=== PATIENT | female | born 2000 | race Caucasian/White ===

== ENCOUNTER 2021-02-11 09:20 | Emergency (ER) | payer OTHER, SELFPAY ==
[2021-02-11 09:33] VITALS: BP 146/97; PULSE 104; RESP 18; TEMP 37.1; O2SAT 100
--- NOTE | 2021-02-11 09:40 | ED.URI ---
HPI - URI/Sore Throat General Chief Complaint: Upper Respiratory Infection Stated Complaint: Cough, head ache. Time Seen by Provider: 02/11/21 09:40 Source: patient Mode of arrival: ambulatory Limitations: no limitations History of Present Illness HPI Narrative: Glenny Sanders is a 20 yo female with no PMH comes to [facility] leaving work with an episode of vomiting and diarrhea today. She states she has been coughing quite a bit and has been coughing up mucus ; she has no fever however her pulse rate is somewhat elevated as is her blood pressure. She had Covid in November has had only 1 dose of vaccine. Related Data Home Medications Medication Instructions Recorded Confirmed etonogestrel [Nexplanon] 1 implant SUBDERMAL ONCE 02/11/21 02/11/21 Allergies Allergy/AdvReac Type Severity Reaction Status Date / Time No Known Allergies Allergy Verified 02/11/21 09:39 Review of Systems Review of Systems: CONSTITUTIONAL: Denies fever, chills, sweats. EYES: Denies visual changes, redness, discharge. ENT: Denies rhinorrhea, has congestion, sore throat, otalgia. CARDIOVASCULAR: Denies chest pain, palpitations, edema. RESPIRATORY: Denies dyspnea, wheezing, has cough GASTROINTESTINAL: Denies abdominal pain, nausea, vomiting, diarrhea. GENITOURINARY: Denies dysuria, hematuria, abnormal discharge SKIN: Denies rash or itching. NEUROLOGIC: Denies numbness, or focal weakness. PSYCHIATRIC: Denies anxiety or depression. PMFSH Past Medical History Medical History No acute medical problems Family History Family History Other No acute medical problems Social History Social History (Updated 02/11/21 @ 09:57 by Lesa Au CNP) Smoking status: Current every day smoker Tobacco type: e-cigarettes/vaping Alcohol intake: current Comments At time of signature, I agree with nursing past medical, surgical, social and family history. There is no relevant family history pertinent to the presenting complaint. BP elevated at visit - recommend follow up with a pcp Exam Narrative: GENERAL: This is a well-nourished, well-developed patient, in mild distress. HEAD: normocephalic, atraumatic. EYES: Sclera clear/white. Vision is grossly intact. EARS: External ears normal, auditory canals erythema and without drainage, TMs normal without perforation. Hearing grossly intact. NOSE: External nose normal without nasal discharge, nares without redness, mild rhinorrhea. THROAT: Mucous membranes moist, posterior pharynx erythema NECK: Neck supple, non-tender CARDIOVASCULAR: Tachycardic rate and rhythm without murmurs, gallops, or rubs. RESPIRATORY: Clear to auscultation. Breath sounds equal bilaterally. No wheezes, rales, or rhonchi. GASTROINTESTINAL: Abdomen soft, non-tender, SKIN: warm, intact with no suspicious lesions or rash, good texture and turgor. NEURO: awake, alert, and oriented to person, place and time. There were no obvious focal neurologic abnormalities. Steady gait EXTREMITIES: Normal range of motion. BACK: Nontender without deformity Course Course Emergency Course: Patient comes with cough not feeling well myalgias Flu negative Treated with Tessalon, Zyrtec, rest and hygiene hydration Vital Signs Vital signs: Vital Signs Temperature 98.7 F 02/11/21 09:33 Pulse Rate 104 H 02/11/21 09:33 Respiratory Rate 18 02/11/21 09:33 Blood Pressure 146/97 H 02/11/21 09:33 Pulse Oximetry 100 02/11/21 09:33 Temperature 98.7 F 02/11/21 09:33 Pulse Rate 104 H 02/11/21 09:33 Respiratory Rate 18 02/11/21 09:33 Blood Pressure 146/97 H 02/11/21 09:33 Pulse Oximetry 100 02/11/21 09:33 MDM - URI/Sore Throat Differential Diagnosis Differential diagnosis: Likely upper respiratory infection, sinusitis, viral infection, bronchitis, pharyngitis and other Lab Data Labs: Influenza A S
== END 2021-02-11 10:08 | disposition home or self-care (01) ==
PROVIDERS: Emergency Provider Nurse Practitioner
DX: J06.9 Acute upper respiratory infection, unspecified (principal); F17.200 Nicotine dependence, unspecified, uncomplicated
CPT/HCPCS: 87804; 99213; G0463

== ENCOUNTER 2022-01-16 13:29 | Emergency (ER) | payer OTHER, SELFPAY ==
[2022-01-16 13:37] VITALS: BP 142/92; PULSE 8; RESP 16; TEMP 37.3; O2SAT 99
[2022-01-16 13:38] VITALS: BP 142/92; PULSE 8; RESP 16; TEMP 37.3; O2SAT 99
--- NOTE | 2022-01-16 13:50 | ED.EAR ---
HPI - Ear Problem General Chief complaint: Ear Stated complaint: ear pain Time Seen by Provider: 01/16/22 13:51 Source: patient Mode of arrival: ambulatory Limitations: no limitations History of Present Illness HPI Narrative: 21 y/o female presented for c/o left ear pain since last night. Tried Debrox today and attempted to flush the ear afterwards, and thinks that made the pain worse. States she took a nap and upon waking about an hour ago she has had throbbing pain 01/17 and reports a tender 'knot' behind the ear. Denies tinnitus, dizziness, nausea, vomiting, fevers or chills. States she took ibuprofen for symptoms. MD Complaint: ear pain Related Data Home Medications Medication Instructions Recorded Confirmed etonogestrel 68 mg subdermal subdermal 03/01/19 implant (Nexplanon) Allergies Allergy/AdvReac Type Severity Reaction Status Date / Time No Known Allergies Allergy Verified 01/16/22 13:37 Review of Systems Review of Systems: CONSTITUTIONAL: Denies malaise, chills, or fever. EYES: Denies visual changes, redness, or discharge. ENT: Denies rhinorrhea, congestion, sinus pain, and sore throat. Reports ear pain CARDIOVASCULAR: Denies chest pain, palpitations, or edema. RESPIRATORY: Denies cough or dyspnea. GASTROINTESTINAL: Denies abdominal pain, nausea, vomiting, diarrhea SKIN: Denies rash or itching. MUSCULOSKELETAL: Denies myalgia. NEUROLOGIC: Denies headache. All systems reviewed & are unremarkable except as noted in HPI and below PMFSH Social History Social History Smoking status: Never smoker Alcohol intake: never Substance use: never Comments At time of signature, agree with nursing past medical, surgical, social and family history. There is no relevant family history pertinent to the presenting complaint Exam Narrative: GENERAL: Appears in pain, no acute distress. EYES: PERRLA, conjunctivae clear ENT: Nares clear. Mucous membranes moist. Right TM pearly sharp with dull light reflex; Left TM erythematous and bulging with erythematous canal, tender; no tragal tenderness. Oropharynx not erythematous without lesions. Tonsils not enlarged and without exudate, no drooling, no hoarseness, no trismus, uvula midline. NECK: Supple. Pre and post auricular lymphadenopathy CHEST: Clear to auscultation, breath sounds equal. No wheezing, rhonchi, rales, or stridor. HEART: Regular rate and rhythm. No murmur heard. SKIN: Warm, dry, no rash. NEURO: Alert and oriented x3. Course Course Emergency Course: Patient is aware of diagnosis, understands and agrees to treatment plan. Anticipatory guidance given. Patient agrees to follow-up as directed and is aware of reasons to seek care at the emergency department. Portions of this record may have been created with voice recognition software Level [facility] Care: [facility] Vital Signs Vital signs: Vital Signs Temperature 99.1 F 01/16/22 13:37 Pulse Rate 8 L 01/16/22 13:37 Respiratory Rate 16 01/16/22 13:37 Blood Pressure 142/92 H 01/16/22 13:37 Pulse Oximetry 99 01/16/22 13:37 Oxygen Delivery Room Air 01/16/22 13:37 Temperature 99.1 F 01/16/22 13:38 Pulse Rate 8 L 01/16/22 13:38 Respiratory Rate 16 01/16/22 13:38 Blood Pressure 142/92 H 01/16/22 13:38 Pulse Oximetry 99 01/16/22 13:38 Oxygen Delivery Room Air 01/16/22 13:38 Reviewed Medical Decision Making MDM Narrative Medical decision making narrative: Advised supportive measures and signs/symptoms to go to the ER. Patient is appropriate for outpatient treatment and follow-up. Differential Diagnosis Differential Diagnosis: Coronavirus, strep pharyngitis, allergic rhinitis, upper respiratory tract infection, sinusitis, rhinosinusitis, nasopharyngitis, viral pharyngitis, otitis media, otitis externa, eustachian tube dysfunction, foreign body, cerumen impaction. Vital Signs Vital Signs: Vital Sign
== END 2022-01-16 14:06 | disposition home or self-care (01) ==
PROVIDERS: Emergency Provider Nurse Practitioner Family
DX: H66.92 Otitis media, unspecified, left ear (principal)
CPT/HCPCS: 99213; G0463

== ENCOUNTER 2022-01-17 07:31 | Emergency (ER) | payer OTHER, SELFPAY ==
[2022-01-17 07:35] VITALS: BP 139/96; PULSE 94; RESP 17; TEMP 36.5; O2SAT 99
--- NOTE | 2022-01-17 07:59 | ED.EAR ---
HPI - Ear Problem General Chief complaint: Ear Stated complaint: L EAR INFECTION Time Seen by Provider: 01/17/22 07:32 Source: RN notes reviewed History of Present Illness HPI Narrative: Patient presents emergency room from home for left ear pain. Patient states left ear pain began 2 days ago. States that the ear is painful to touch as well as aching pain inside the ear and she feels swollen around the area she denies any fevers or chills rhinorrhea sore throat or any other symptoms states she went to the urgent care yesterday and was prescribed Augmentin which she is taken 2 doses of as well as ibuprofen she states she took ibuprofen this morning with minimal relief of the pain Related Data Home Medications Medication Instructions Recorded Confirmed etonogestrel 68 mg subdermal subdermal 03/01/19 implant (Nexplanon) Allergies Allergy/AdvReac Type Severity Reaction Status Date / Time No Known Allergies Allergy Verified 01/17/22 07:38 Review of Systems Review of Systems: Gen.: Denies fevers or chills HEENT: See HPI Respiratory: Denies cough or shortness of breath Musculoskeletal: Denies joint pain Neuro: Denies numbness, tingling, weakness Skin: Denies rash Endo: Denies DM PMFSH Past Medical History Medical History (Updated 01/17/22 @ 08:01 by Isaías Colunga DO) Patient denies significant medical history Social History Social History Smoking status: Never smoker Alcohol intake: never Substance use: never Exam Narrative: APPEARANCE: No acute distress, nontoxic, resting in bed HEENT: Normocephalic, atraumatic, right TM is normal appearance, the left ear is tender to palpation with pulling on the ear the ear canal is swollen and can see approximately 25% of the TM that is normal in appearance nares patent, oral mucosa moist erythema exudate posterior pharynx Neck: Supple no cervical lymphadenopathy RESPIRATORY: No respiratory distress MUSCULOSKELETAl: Moves all extremities. NEURO: Awake and alert. Following commands, speech normal, no focal deficits SKIN:: Warm, dry. Normal Color PSYCHIATRIC: Normal affect/mood Course Course Emergency Course: Discussed with patient results of workup and diagnosis. Discussed need for follow-up with primary care, proper use of medication, and reasons to return to the emergency department. Patient understands and agrees to current treatment plan discussed with patient need to continue her Augmentin Vital Signs Vital signs: Vital Signs Temperature 97.7 F 01/17/22 07:35 Pulse Rate 94 01/17/22 07:35 Respiratory Rate 17 01/17/22 07:35 Blood Pressure 139/96 H 01/17/22 07:35 Pulse Oximetry 99 01/17/22 07:35 Oxygen Delivery Room Air 01/17/22 07:35 Temperature 97.7 F 01/17/22 07:35 Pulse Rate 94 01/17/22 07:35 Respiratory Rate 17 01/17/22 07:35 Blood Pressure 139/96 H 01/17/22 07:35 Pulse Oximetry 99 01/17/22 07:35 Oxygen Delivery Room Air 01/17/22 07:35 Medical Decision Making Vital Signs Vital Signs: Vital Signs Temperature 97.7 F 01/17/22 07:35 Pulse Rate 94 01/17/22 07:35 Respiratory Rate 17 01/17/22 07:35 Blood Pressure 139/96 H 01/17/22 07:35 Pulse Oximetry 99 01/17/22 07:35 Oxygen Delivery Room Air 01/17/22 07:35 Temperature 97.7 F 01/17/22 07:35 Pulse Rate 94 01/17/22 07:35 Respiratory Rate 17 01/17/22 07:35 Blood Pressure 139/96 H 01/17/22 07:35 Pulse Oximetry 99 01/17/22 07:35 Oxygen Delivery Room Air 01/17/22 07:35 Discharge Plan Discharge Clinical Impression: Otitis externa Patient Disposition: Home, Self-Care Condition: Stable Instructions: Antibiotic Form, Swimmer's Ear (ED) Additional Instructions: Return for increasing pain fever vomiting or any other symptoms of concern Prescriptions: New ciprofloxacin-dexamethasone [Ciprodex] 0.3-0.1 % drops,suspension 4 drp LE
[2022-01-17] MEDS: HYDROcodone/acetaminophen (*CRX) 5-325 MG TABLET 1 TAB PO (08:01)
[2022-01-17] MEDS: NEOMYCIN/POLYMYXIN/HYDROCORT OT SUSP 10 ML BTL (*BKC) 4 DROP EACH EAR (08:11)
--- NOTE | 2022-01-17 08:15 | PC.NURSE ---
Antibiotics administered in left ear only per EDP Cristine.
[2022-01-17 08:20] VITALS: TEMP 36.5
== END 2022-01-17 08:20 | disposition home or self-care (01) ==
PROVIDERS: Emergency Provider Emergency Medicine
DX: H60.92 Unspecified otitis externa, left ear (principal)
CPT/HCPCS: 99283; A9270

== ENCOUNTER 2022-06-22 08:56 | Observation (INO) | payer OTHER, SELFPAY ==
--- NOTE | ~2022-06-22 | CT_ITS ---
EXAMINATION: CT abdomen pelvis w con DATE: 06/22/2022 11:04 INDICATION: Right upper quadrant abdominal pain and bilateral flank pain TECHNIQUE: Computed tomography (CT) of the abdomen and pelvis was performed with 100 mL Omnipaque-350 intravenous contrast. Automated exposure control and iterative reconstruction technique were employe d. The dose-length product was 1332.33 mGy-cm. COMPARISON: None FINDINGS: Lung bases are clear. Heart size is normal. No pericardial or pleural effusion. Focal hepatic steatos is at the ligamentum teres. Large gallstone in the nondilated gallbladder with no evident wall thicke aura or pericholecystic inflammatory stranding to suggest acute cholecystitis. Curvilinear calcificat ion at the fundus of the gallbladder could represent additional tiny gallstones or mural calcificatio n (porcelain gallbladder). No intra or extrahepatic biliary ductal dilation. Pancreas, spleen, bilate ral adrenal glands and kidneys are normal. Postoperative change of prior appendectomy with suture vanessa e along the tip the cecum and a few surgical clips along the ileocolic mesentery. Bowels are otherwis e unremarkable with no obstruction. 2 cm right ovarian cyst/follicle. Left ovary, anteverted uterus a nd bladder are unremarkable. Small amount of likely physiologic free fluid in the cul-de-sac. No absc ess or free intraperitoneal gas. No pathologically enlarged abdominal or pelvic lymphadenopathy. Righ t supra-acetabular bone island. IMPRESSION: 1. Cholelithiasis along with possible mural calcification (porcelain gallbladder) at the fundus. No b iliary ductal dilation or findings to suggest acute cholecystitis. Reviewed, dictated and finalized at location B. IMPRESSION: 1. Cholelithiasis along with possible mural calcification (porcelain gallbladde r) at the fundus. No biliary ductal dilation or findings to suggest acute juan cystitis.
--- NOTE | ~2022-06-22 | US_ITS ---
EXAMINATION: US abdomen limited DATE: 06/22/2022 11:58 INDICATION: Cholelithiasis. Itchiness. TECHNIQUE: Multiple grayscale and Doppler ultrasound images of the abdomen were obtained. COMPARISON: CT abdomen pelvis 06/22/2022 FINDINGS: Results portions of the head and body of the pancreas are normal. The liver is normal witho ut focal lesion. There is normal flow in main portal vein. The gallbladder is normal in size and cont ains gallstones. No gallbladder wall thickening or sonographic Fortune sign. The common duct is mildly dilated and measures 7 mm. IMPRESSION: 1. Mildly dilated common duct. 2. Cholelithiasis. No evidence of acute cholecystitis. Reviewed, dictated and finalized at location A.
--- NOTE | ~2022-06-22 | MR_ITS ---
EXAMINATION: MR MRCP wo/w con/w 3D wo ind DATE: 06/23/2022 07:05 INDICATION: Choledocholithiasis. Abdominal pain. TECHNIQUE: Magnetic resonance imaging (MRI) of the abdomen was performed without and with 17 mL Multi Gilbert intravenous contrast. Sequences included coronal T2-weighted FS FSE, coronal T2-weighted FSE, a xial T1-weighted LAVA, coronal FS FIESTA, axial dual-echo T1-weighted SPGR, coronal lava-FLEX, sagitt al T2-weighted FSE, axial T2-weighted FSE, and axial DWI. Thick-slab T2-weighted FSE images were obta ined for magnetic resonance cholangiopancreatography (MRCP). Maximum intensity projection 3-D reconst ructions of the volumetric data were created by the technologist. Postcontrast sequences included cor onal LAVA-flex and time course of axial T1-weighted LAVA. COMPARISON: Abdomen ultrasound 06/22/2022, CT abdomen and pelvis 06/22/2022 FINDINGS: ABDOMEN MRI: The liver and spleen are normal. There is a 3.0 cm gallstone in the gallbladder, which i s normal in size. The pancreas, adrenal glands, and kidneys are normal. There are no dilated loops of bowel. There are no pathologically enlarged lymph nodes. There is no free intraperitoneal fluid. ABDOMEN MRCP: The common duct is mildly dilated to 8 mm. No choledocholithiasis. IMPRESSION: 1. Mildly dilated common duct. No choledocholithiasis. 2. Cholelithiasis. No evidence of acute cholecystitis. Reviewed, dictated and finalized at location A.
[2022-06-22 09:18] VITALS: BP 143/70; PULSE 95; RESP 18; TEMP 36.8; O2SAT 100
[2022-06-22 09:49] LABS: Basophils Percent Auto 0.4 % (0.2-1.2); Eosinophils Absolute Auto 0.1 K/mm3 (0-0.3); Eosinophils Percent Auto 1.1 % (0-4.4); Hematocrit 42.4 % (37.0-47.0); Hemoglobin 13.8 g/dL (12.0-15.0); Immature Granulocyte Absolute 0.03 K/mm3 (0.00-0.031); Immature Granulocyte Percent A 0.3 % (0-0.5); Lymphocytes Absolute Auto 1.55 K/mm3 (0.9-3.2); Lymphocytes Percent Auto 16.1 % (18.3-44.2); Mean Corpuscular HGB Conc 32.5 g/dl (32-36); Mean Corpuscular Hemoglobin 30.4 pg (26-34); Mean Corpuscular Volume 93.4 fl (80-100); Mean Platelet Volume 11.2 fl (7.4-10.4); Monocytes Absolute Auto 0.3 K/mm3 (0.1-0.6); Monocytes Percent Auto 2.8 % (2.6-8.5); Neutrophils Absolute Auto 7.6 K/mm3 (1.3-6.7); Neutrophils Percent Auto 79.3 % (45.5-73.1); Platelet Count Result 260 k/mm3 (150-375); Red Blood Count 4.54 M/mm3 (4.2-5.4); White Blood Count 9.6 K/mm3 (4.5-10.0)
[2022-06-22 09:53] LABS: Appearance Urine Cloudy (Clear); Bacteria Urine 3+ /hpf; Bilirubin Urine Negative (Negative); Blood Urine Negative (Negative); Color Urine Yellow (Yellow); Glucose Urine UA 1+ mg/dL (Negative); Ketones Urine Trace mg/dL (Negative); Leukocyte Esterase Ur Trace LEU/UL (Negative); Nitrate Urine Negative (Negative); Non Pathogenic Casts 0-2; Protein Urine Negative (Negative); RBC Urine 0-2 /hpf (0-2); Specific Grav Ur 1.026 (1.001-1.035); Squamous Epithelial Cell Urine Many /hpf (Few); Urobilinogen Urine 0.2 mg/dL (<2.0)
[2022-06-22 09:55] LABS: Add Urine Microscopic? YES
[2022-06-22 09:59] LABS: Alanine Aminotransferase 146 U/L (6-35); Albumin Level 4.1 g/dL (3.5-5.1); Alkaline Phosphatase 106 U/L (38-126); Anion Gap 7 mmol/L (8-16); Aspartate Amino Transferase 47 U/L (14-36); Bilirubin,Total 0.8 mg/dL (0.2-1.3); Blood Urea Nitrogen 15 mg/dL (7-17); Calcium 8.7 mg/dL (8.4-10.2); Carbon Dioxide 25 mmol/L (22-30); Chloride 105 mmol/L (98-107); Estimated CRCL calculation 118 ml/min; Estimated Glomerular Filt Rate > 60; Glucose 202 mg/dL (65-110); Potassium 3.9 mmol/L (3.4-5.0); Sodium 137 mmol/L (137-145)
--- NOTE | 2022-06-22 10:24 | ED.FEMALEGU ---
HPI - Female Genitourinary General Chief complaint: Urogenital-Female <Marnie Whitlock PA-C - Last Filed: 06/22/22 13:27> Stated complaint: Flank Pain, Itching all over, dark urine <Marnie Whitlock PA-C - Last Filed: 06/22/22 13:27> Time Seen by Provider: 06/22/22 10:17 <Marnie Whitlock PA-C - Last Filed: 06/22/22 13:27> History of Present Illness HPI Narrative: Patient is a 21-year-old female who is previously healthy here for evaluation of bilateral flank pain. Patient states the pain is intermittent in nature, coming in waves without warning. The pain originates in her bilateral flanks and wraps around to the front of her abdomen. Is occasionally associated with nausea but no vomiting. She also notes urinary urgency but decreased urinary output. Additionally, patient states that she has an itching sensation all over her body but denies any rash, exposure to allergens, new soaps medications or detergents. She has not attempted any medicine for her symptoms. No fevers, chills, vomiting, diarrhea, constipation. She has a history of appendicitis and is status post appendectomy. <RAYMOND Mahoney Last Filed: 06/22/22 13:27> Related Data Home medications: Home Medications Medication Instructions Recorded Confirmed etonogestrel 68 mg subdermal subdermal 03/01/19 implant (Nexplanon) <RAYMOND Mahoney Last Filed: 06/22/22 13:27> Allergies/Adverse reactions: Allergies Allergy/AdvReac Type Severity Reaction Status Date / Time No Known Allergies Allergy Verified 06/22/22 08:57 <RAYMOND Mahoney Last Filed: 06/22/22 13:27> Review of Systems Review of Systems: Gen.: Denies fevers or chills Eyes: Denies eye pain or visual change ENT: Denies congestion Respiratory: Denies shortness of breath or cough CV: Denies chest pain or palpitations GI: Reports bilateral flank pain and nausea. Denies abdominal pain, emesis or diarrhea reports urinary frequency. Denies burning, urgency,hematuria Musculoskeletal: Denies back pain or muscle pain Neuro: Denies numbness, tingling, weakness or focal weakness Skin: Reports itching Except as documented, all other systems reviewed and negative <Marnie Whitlock PA-C - Last Filed: 06/22/22 13:27> [facility] Past Medical History Medical History: Medical History (Updated 06/22/22 @ 12:41 by Marnie Whitlock PA-C) Patient denies significant medical history <Marnie Whitlock PA-C - Last Filed: 06/22/22 13:27> Surgical History Surgical History: Surgical History (Updated 06/22/22 @ 12:57 by Dorita Pena NP) History of appendectomy <Marnie Whitlock PA-C - Last Filed: 06/22/22 13:27> Family History Family History: Family History (Updated 06/22/22 @ 13:00 by Dorita Pena NP) Other Diabetes mellitus Grandparent Diabetes mellitus Grandparent Heart disease <Marnie Whitlock PA-C - Last Filed: 06/22/22 13:27> Social History Social History: Social History (Updated 06/22/22 @ 12:59 by Dorita Pena NP) Social History: [employer]. no children Smoking status: Current every day smoker Alcohol intake: never Substance use: never <Marnie Whitlock PA-C - Last Filed: 06/22/22 13:27> Exam Narrative: APPEARANCE: Well appearing, no pain in distress, well-nourished. Head: Normocephalic and atraumatic. EYES: PERRLA/EOMI, conjunctivae clear NOSE: No nasal drainage EARS: External ear normal in appearance THROAT: Oropharynx is clear. Mucous membranes are moist. NECK: Supple. No adenopathy, no masses. RESPIRATORY: Airway patent, respirations nonlabored. Clear to auscultation bilaterally, no rales, rhonchi, wheezing. CARDIOVASCULAR: Regular rate and rhythm without murmurs, rubs, or gallops. ABDOMINAL: Normoactive bowel sounds. Soft, nontender, nondistended. No rebound tenderness or guarding.
[2022-06-22] MEDS: LACTATED RINGERS 1,000 ML 999 ML IV CONT (10:51)
[2022-06-22] MEDS: diphenhydrAMINE HCl INJ 50 MG/ML VIAL 25 MG IV PUSH ×2 (10:52→13:16)
[2022-06-22 12:52] LABS: Lipase 2233 U/L (23-300)
--- NOTE | 2022-06-22 12:56 | PM.IMHP ---
H&P: HPI History of Present Illness Date/Time: 06/22/22 12:56 Chief Complaint: Flank pain and itching all over Narrative: This is a 21-year-old female patient came to the emergency room complaints of bilateral flank pain that started approximately 3 days ago. This pain comes and goes without warning. Patient has had no previous history of gallbladder disease. Patient also has nausea without any vomiting. She also has urinary urgency decreased urine output. She does not complain of her rash but has been complaining of peer itis to her back and arms. She has not used any new detergents or medications. She has not taken any medication for the symptoms. No fever or chills. Abdominal pelvis CT was read as cholelithiasis along with possible mural calcification at the fundus. No biliary ductal dilatation or findings to suggest acute cholecystitis. Patient was also found to be positive for UTI and was started on Rocephin. Abdominal ultrasound mildly dilated common duct. Cholelithiasis no evidence of acute cholecystitis. GI and surgery have been consulted. The patient was started on lactated Ringer's Tylenol Benadryl and Rocephin. The patient is being admitted to observation status on date of service of 06/22/2022. Review of Systems Review of Systems: All systems reviewed & are unremarkable except as noted in HPI and below Constitutional: Constitutional: Reports as per HPI and Reports no additional constitutional complaints Eyes: Eyes: Reports as per HPI and Reports no additional eye complaints ENT: Reports system reviewed and no additional complaints, except as documented and Reports Normal hearing present Cardiovascular: Cardiovascular: Reports no additional cardiovascular complaints Respiratory: Respiratory: Reports no additional respiratory complaints and Reports no additional respiratory complaints Gastrointestinal: Gastrointestinal: Reports as per HPI and Reports no additional gastrointestinal complaints Musculoskeletal: Musculoskeletal: Reports no additional musculoskeletal complaints Integumentary/Breasts: Skin/Breast: Reports system reviewed and no additional complaints, except as docu and Reports as per HPI Neurologic: Reports system reviewed and no additional complaints, except as documented, Reports as per HPI and Reports Normal hearing present Psychiatric: Psychiatric: Reports no additional psychiatric complaints and Reports as per HPI Endocrine: Endocrine: Reports no additional endocrine complaints Hematologic/Lymphatic: Hematologic/Lymphatic: Reports no additional hematologic/lymphatic complaints Allergic/Immunologic: Allergic/Immunologic: Reports no additional allergic/immunologic complaints PMFSH Past Medical History Medical History Patient denies significant medical history Surgical History Surgical History History of appendectomy Family History Family History Other Diabetes mellitus Grandparent Diabetes mellitus Grandparent Heart disease Social History Social History (Updated 06/22/22 @ 15:34 by Dorita Pena NP) Social History: The patient continues to vape tobacco. She works is a [employer] at [employer]. She is single and has no children. Code status full code Smoking status: Current every day smoker Alcohol intake: current Drinks per week: 1 Substance use: current Substance use type: marijuana Last use: 06/22/ Lack of Transportation: No Lack of Food: Never True Current Housing: I Have Housing Concerned About Future Housing: No Difficulty Paying Gas/Electric Bills: No Difficulty Paying for Meds: No Currently Unemployed: No Education: High School Diploma/GED Difficulty w/ Childcare or Family Care: No Spiritual care concerns: No Meds Home Medications and Allergies
[2022-06-22] MEDS: LACTATED RINGERS 1,000 ML 150 ML IV CONT ×3 (13:09→21:36)
[2022-06-22 14:26] VITALS: BP 115/72; PULSE 73; RESP 18; TEMP 36.3; O2SAT 100
--- NOTE | 2022-06-22 14:26 | PC.NURSE ---
This patient, Glenny Sanders, was admitted to Medical Room 242-. Patient/family oriented to hospital policies and general routines including ID bracelet, bed and alarms, visiting hours, pain management, procedures, bathroom and other care routines, personal items, smoking policy, room service/diet, and visiting hours. Information on how to activate the Rapid Response Team has been discussed. Patient/Family are encouraged to report perceived risks to care and to ask questions if they do not understand what they are told or what they should do.
[2022-06-22 14:31] VITALS: BMI 37.8
[2022-06-22 19:47] VITALS: BP 140/78; PULSE 69; RESP 18; TEMP 36.6; O2SAT 100
[2022-06-23] VITALS (11 sets, daily range): BP systolic 112–154; BP diastolic 58–96; PULSE 82–108; RESP 10–20; TEMP 36.4–37.3; O2SAT 98–100
[2022-06-23] MEDS: LACTATED RINGERS 1,000 ML 150 ML IV CONT (04:26)
[2022-06-23] MEDS: ONDANSETRON INJ 4 MG/2 ML VIAL IV PUSH (04:26)
[2022-06-23 05:15] LABS: Basophils Percent Auto 0.4 % (0.2-1.2); Eosinophils Absolute Auto 0.1 K/mm3 (0-0.3); Eosinophils Percent Auto 1.5 % (0-4.4); Hemoglobin 12.6 g/dL (12.0-15.0); Immature Granulocyte Absolute 0.03 K/mm3 (0.00-0.031); Immature Granulocyte Percent A 0.4 % (0-0.5); Lymphocytes Absolute Auto 2.39 K/mm3 (0.9-3.2); Lymphocytes Percent Auto 29.6 % (18.3-44.2); Mean Corpuscular HGB Conc 33.2 g/dl (32-36); Mean Corpuscular Hemoglobin 30.9 pg (26-34); Mean Corpuscular Volume 93.1 fl (80-100); Mean Platelet Volume 11.3 fl (7.4-10.4); Monocytes Absolute Auto 0.5 K/mm3 (0.1-0.6); Monocytes Percent Auto 6.2 % (2.6-8.5); Neutrophils Percent Auto 61.9 % (45.5-73.1); Platelet Count Result 222 k/mm3 (150-375); Red Blood Count 4.08 M/mm3 (4.2-5.4); Red Cell Distribution Width 14.8 % (11.5-14.5); White Blood Count 8.1 K/mm3 (4.5-10.0)
[2022-06-23 05:30] LABS: Lactic Acid Reflex 0.8 mmol/L (0.7-2.0)
[2022-06-23 05:36] LABS: Alanine Aminotransferase 107 U/L (6-35); Albumin Level 3.7 g/dL (3.5-5.1); Alkaline Phosphatase 90 U/L (38-126); Anion Gap 4 mmol/L (8-16); Aspartate Amino Transferase 44 U/L (14-36); Bilirubin,Total 0.8 mg/dL (0.2-1.3); Blood Urea Nitrogen 9 mg/dL (7-17); Calcium 8.6 mg/dL (8.4-10.2); Carbon Dioxide 27 mmol/L (22-30); Chloride 101 mmol/L (98-107); Estimated CRCL calculation 149 ml/min; Estimated Glomerular Filt Rate > 60; Glucose 90 mg/dL (65-110); Lipase 315 U/L (23-300); Magnesium 1.6 mg/dL (1.6-2.3); Potassium 3.7 mmol/L (3.4-5.0); Sodium 132 mmol/L (137-145)
--- NOTE | 2022-06-23 10:05 | PM.CNGS ---
Assessment and Plan Assessment and plan (1) Acute gallstone pancreatitis: Code(s): K85.10 - Biliary acute pancreatitis without necrosis or infection Status: Acute Assessment and Plan: Present with acute pancreatitis and cholelithiasis. Lipase elevated at 2233. Imaging does not suggest any evidence of peripancreatic inflammation. Resolving, abdominal pain nearly resolved today and lipase is down to 315. Denies heavy alcohol use. Most likely gallstone pancreatitis, passed a stone. Continue medical management for pancreatitis, keep NPO for now with IV fluids. Recommend proceeding with a cholecystectomy to prevent future complications of the cholelithiasis or recurrent pancreatitis. Will follow along to find optimal timing for surgery. (2) Gallstones: Code(s): K80.20 - Calculus of gallbladder without cholecystitis without obstruction Status: Acute Assessment and Plan: Large 3 cm gallstone noted in the gallbladder on imaging and mild common bile duct dilation. No evidence of cholecystitis. Likely passed a stone causing acute biliary pancreatitis. MRCP negative for common duct stone. GI has been consulted. We would recommend to proceed with a laparoscopic cholecystectomy, possible open, by Dr. Mcmahan under general anesthesia. Description of the procedure, risks, benefits, expected outcomes, and expected recovery were discussed with the patient in detail. We discussed the risks of bile leak and bile duct injury, liver/bowel injury, bleeding, and infection. Also discussed the possibility of having to convert to an open procedure if necessary. Patient agrees to proceed. Will work on adding her onto the surgery schedule possibly later today or tomorrow. (3) Abnormal urinalysis: Code(s): R82.90 - Unspecified abnormal findings in urine Status: Acute Assessment and Plan: UA abnormal. Asymptomatic. Urine cx pending. Currently on IV antibiotics per Hospitalist. (4) Obesity (BMI 30-39.9): Code(s): E66.9 - Obesity, unspecified Status: Acute (5) Vapes nicotine containing substance: Code(s): Z72.0 - Tobacco use Status: Acute Assessment and Plan: Encouraged cessation. Plan I have discussed the patient's case and plan of care with Dr. Mcmahan. History of Present Illness Consult details Consult date: 06/23/22 Reason for consult: other (Possible porcelain gallbladder) Requesting physician: Marnie Whitlock PA-C Narrative: This is a 21-year-old woman who presented to the ER yesterday with complaints of epigastric and mid back pain starting 4 days ago. She had eaten eggs, sausage, and a donut for breakfast. A few hours later, she noticed some mid back pain and epigastric abdominal pain. Her pain became more constant in the epigastric area and less in her back. She also endorses severe generalized itching that started the next day. She noticed her urine was getting dark, but reports this as dark yellow, no orange or tea-colored urine. Denies acholic stools or jaundice. No fever or chills. She had some associated mild nausea, but no vomiting. The abdominal pain progressively worsened the next two days and ultimately became unbearable without any relieving factors by yesterday, which brought her into the ER. In the ER, labs showed a lipase of 2,233, WBC 9,600, AST 47, ALT 146, and normal total bilirubin and alk phos. UA with trace leukocytes, 6-10 wbc's, and many squamous epithelial cells. Urine culture pending. Denies dysuria, urinary frequency, or any other urinary complaints. CT scan of the abdomen and pelvis showed cholelithiasis and possible mural calcification at the fundus of the gallbladder, but no biliary ductal dilatation or findings to suggest acute cholecystitis. Right upper quadrant abdominal ultrasound showed a mildly dilated common duct measuring 7 mm with cholelithiasis, but no evidence of acute cholecystitis. GI was consulted and the patient was admitted to the [facility]
--- NOTE | 2022-06-23 14:55 | PM.IMPN ---
Progress Note: A&P Assessment and Plan (1) Acute gallstone pancreatitis: Code(s): K85.10 - Biliary acute pancreatitis without necrosis or infection Status: Acute Assessment and Plan: Patient presented with diffuse abdominal pain. CT of abdomen/pelvis on presentation showed cholelithiasis with possible mural calcification of the fundus with no biliary ductal dilatation to suggest acute cholecystitis. Pancreas was normal on imaging Lipase markedly elevated on presentation at 2200.. Improved to 300 today Patient mild elevation of her LFTs but not significantly so MRCP completed which showed mildly dilated common duct with no evidence of choledocholithiasis. Suspect patient passed the stone. Appreciate gastroenterology and general surgery consultation Planning for laparoscopic cholecystectomy this afternoon Continue NPO diet and IV fluids (2) Gallstones: Code(s): K80.20 - Calculus of gallbladder without cholecystitis without obstruction Status: Acute Assessment and Plan: As noted above Planning for cholecystectomy this afternoon (3) Abnormal urinalysis: Code(s): R82.90 - Unspecified abnormal findings in urine Status: Acute Assessment and Plan: UA slightly abnormal on presentation with trace leukoesterase and 6-10 WBC, however with many squamous cells. Patient is relatively asymptomatic aside from dark urine which could be explained by above issues. She was started on Rocephin on admission while awaiting urine culture results Patient is afebrile and without leukocytosis. No clinical symptoms to suggest UTI, therefore will discontinue antibiotics while awaiting culture results Subjective Date/time seen: 06/23/22 14:55 Interval history: Date of service: 06/23/2022 Glenny Sanders is a 21-year-old female with no significant to his history to is seen in follow-up for cholelithiasis. She is starting to feel better today. She denies nausea or vomiting. She has no abdominal pain at this time. She had a bowel movement this morning. She denies fevers or chills. She is awaiting surgery this afternoon. Her only complaint at this time is a headache and she feels that this is due to hunger. She denies any urinary symptoms. States that her urine was slightly dark in color but she did not have dysuria continue monitor, urgency, or frequency. Review of Systems Review of Systems: All systems reviewed & are unremarkable except as noted in HPI and below Exam Narrative: General: A well-nourished well-appearing 21-year-old female, sitting up in bed, comfortable, NARD Neuro: awake, alert and oriented x4, speech clear, no focal neuro deficits noted HEENMT: normocephalic, atraumatic, EOMI, sclerae anicteric, moist oral mucosa Respiratory: clear to auscultation bilaterally, nonlabored breathing Cardio: regular rate, regular rhythm with S1-S2 Abdomen: nondistended, normoactive bowel sounds, soft, nontender to palpation Extremities: no edema, erythema, or tenderness to palpation, DP pulses 2+ bilaterally Skin: no rashes or lesions, warm and dry Psych: appropriate mood and affect, judgment and insight intact Objective Data Vital Signs Vital Signs: Vital Signs - 24 hr 06/22/22 19:47 06/22/22 20:00 06/23/22 04:10 Temperature 97.9 F 97.8 F Pulse Rate 69 82 Respiratory Rate 18 20 Blood Pressure 140/78 117/76 Pulse Oximetry 100 100 Oxygen Delivery Room Air Intake/Output Intake/Output: Intake & Output 06/20/22 06/21/22 06/22/22 06/23/22 23:59 23:59 23:59 23:59 Intake Total 2250 1390 Balance 2250 1390 Meds/Results Medications: Active Medications Generic Name Dose Route Start Last Admin Trade Name Freq PRN Reason Stop Dose Admin Diphenhydramine HCl 25 mg 06/22/22 15:46 Diphenhydramine Hcl Inj 50 Mg/Ml Vial IV PUSH Q4H PRN Itching Ceftriaxone Sodium 1 gm in 50 mls @ 100 mls/hr 06/23/22 12:00 06/23/22 12:21 Rocep
[2022-06-23] MEDS: LACTATED RINGERS 1,000 ML 110 ML IV CONT (15:25)
--- NOTE | 2022-06-23 15:42 | WPDANESEPPF ---
Anes - Initial Pre Proc Eval Procedure: Operation Date: 06/23/22 16:30 Proposed Procedures p Laparoscopic Cholecystectomy, Possible Open - Mark Mcmahan MD Date/Time: 06/23/22 15:42 Surgeon: Estefanía Perez PA-C Pre Op Diagnosis: gallstones,common bile duct dilation Patient Data Age: 21 Gender: F Height: 1.65 m Weight: 103.2 kg Last Vital Signs Temp 36.8 C 06/23/22 15:07 Pulse 98 06/23/22 15:07 Resp 16 06/23/22 15:07 BP 119/80 06/23/22 15:07 Pulse Ox 100 06/23/22 15:07 O2 Del Method Room Air 06/23/22 07:50 Allergies Allergy/AdvReac Type Severity Reaction Status Date / Time No Known Allergies Allergy Verified 06/22/22 08:57 Home Medications Medication Instructions Recorded Confirmed Type etonogestrel 68 mg subdermal 68 mg subdermal 03/01/19 History implant (Nexplanon) ibuprofen 800 mg tablet 800 mg PO TID PRN pain #15 tabs 01/16/22 06/22/22 Rx Laboratory Tests 06/23/22 06/23/22 06/23/22 05:00 05:00 05:00 WBC 8.1 K/mm3 K/mm3 (4.5-10.0) RBC 4.08 M/mm3 L M/mm3 (4.2-5.4) Hgb 12.6 g/dL g/dL (12.0-15.0) Hct 38.0 % % (37.0-47.0) MCV 93.1 fl fl (80-100) MCH 30.9 pg pg (26-34) MCHC 33.2 g/dl g/dl (32-36) RDW 14.8 % H % (11.5-14.5) Plt Count 222 k/mm3 k/mm3 (150-375) MPV 11.3 fl H fl (7.4-10.4) Immature Gran % (Auto) 0.4 % % (0-0.5) Neut % (Auto) 61.9 % % (45.5-73.1) Lymph % (Auto) 29.6 % % (18.3-44.2) [place] % (Auto) 6.2 % % (2.6-8.5) Eos % (Auto) 1.5 % % (0-4.4) Baso % (Auto) 0.4 % % (0.2-1.2) Lymph # (Auto) 2.39 K/mm3 K/mm3 (0.9-3.2) [place] # (Auto) 0.5 K/mm3 K/mm3 (0.1-0.6) Eos # (Auto) 0.1 K/mm3 K/mm3 (0-0.3) Baso # (Auto) 0.0 K/mm3 K/mm3 (0.0-0.1) Abs Immat Gran (auto) 0.03 K/mm3 K/mm3 (0.00-0.031) Absolute Neuts (auto) 5.0 K/mm3 K/mm3 (1.3-6.7) Absolute Nucleated RBC 0.0 K/mm3 K/mm3 (0.0-0.012) Nucleated RBC % 0.0 % % (0.0-0.2) Sodium 132 mmol/L L mmol/L (137-145) Potassium 3.7 mmol/L mmol/L (3.4-5.0) Chloride 101 mmol/L mmol/L (98-107) Carbon Dioxide 27 mmol/L mmol/L (22-30) Anion Gap 4 mmol/L L mmol/L (8-16) BUN 9 mg/dL D mg/dL (7-17) Creatinine 0.60 mg/dL L mg/dL (0.7-1.0) Estim Creat Clear Calc 149 ml/min ml/min Estimated GFR > 60 (59 - ) Glucose 90 mg/dL mg/dL (65-110) Lactic Acid 0.8 mmol/L mmol/L (0.7-2.0) Calcium 8.6 mg/dL mg/dL (8.4-10.2) Magnesium 1.6 mg/dL mg/dL (1.6-2.3) Total Bilirubin 0.8 mg/dL mg/dL (0.2-1.3) AST 44 U/L H U/L (14-36) ALT 107 U/L H U/L (6-35) Alkaline Phosphatase 90 U/L U/L (38-126) Total Protein 6.0 g/dL L g/dL (6.3-8.2) Albumin 3.7 g/dL g/dL (3.5-5.1) Lipase 315 U/L H U/L (23-300) TSH (Reflex) Blood Type Antibody Screen 06/23/22 06/23/22 05:00 12:48 WBC RBC Hgb Hct MCV MCH MCHC RDW Plt Count MPV Immature Gran % (Auto) Neut % (Auto) Lymph % (Auto) [place] % (Auto) Eos % (Auto) Baso % (Auto) Lymph # (Auto) [place] # (Auto) Eos # (Auto) Baso # (Auto) Abs Immat Gran (auto) Absolute Neuts (auto) Absolute Nucleated RBC Nucleated RBC % Sodium Potassium Chloride Carbon Dioxide Anion Gap BUN Creatinine Estim Creat Clear Calc Estimated GFR Glucose Lactic Acid C
[2022-06-23] MEDS: LACTATED RINGERS 1,000 ML 30 ML IV CONT ×2 (15:55→17:33)
--- NOTE | 2022-06-23 15:59 | WPDHPUPDATE1 ---
History and Physical Update Update Date/Time: 06/23/22 15:59 History and Physical has been reviewed, including an updated exam of the patient. There are NO changes in the patient's condition. Risks, benefits, and alternatives have been discussed and questions answered. Patient agrees to proceed with procedure.
[2022-06-23] MEDS: BUPivacaine HCL 0.5% PF 30 ML VIAL 20 ML INFILTRATE (16:27)
[2022-06-23] MEDS: LIDO 1%/EPINEPHRINE 1:100,000 50 ML VIAL 20 ML INFILTRATE (16:27)
[2022-06-23] MEDS: KETOROLAC 30 MG/ML VIAL (*BKC) IV PUSH (17:19)
--- NOTE | 2022-06-23 17:38 | W.PM.PROC2 ---
Procedure Note - Detailed Date of Procedure 06/23/22 Pre-op Diagnosis Gallstone pancreatitis, chronic cholecystitis 2nd cholelithiasis Post-op Diagnosis Same Procedure Performed Laparoscopic cholecystectomy. Surgeon Mark Mcmahan MD [employer] AMBER [place] Anesthesia General Indications Patient is a 21-year-old female who admitted to the hospital with epigastric abdominal pain. She had elevated lipase of 2300. White blood cell count was normal. His imaging showed distended gallbladder with multiple gallstones within the gallbladder and borderline dilation of common bile duct. Total bili room was normal and no common bile duct stone was seen on imaging. For follow-up labs lipase decreased down to 300 on the day of surgery she had no further epigastric abdominal pain. MRCP was performed showing no evidence of a common bile duct stone. She is being brought to the operating now for a laparoscopic cholecystectomy. Findings Minimal chronic inflammation of the gallbladder with a couple of adhesions of the omentum to the infundibular gallbladder. Multiple gallstones the largest of which was approximately 2.5cm in diameter. No other abnormalities. Description of Procedure After informed consent was obtained patient brought to the operating room she is placed in supine position and general endotracheal anesthesia was administered. The abdomen was then prepped and draped in usual sterile fashion. A time-out was then performed identifying the patient as well as procedure to be performed. She was given perioperative IV antibiotics. First into the abdomen the left upper quadrant utilizing a 5mm Optiview port. Once inside the abdomen insufflated to adequate pneumoperitoneum of 15mmHg of CO2. There were no adhesions in the periumbilical region insert placed a 5mm periumbilical trocar port under direct visualization. Laparoscopic switched to the periumbilical trocar port looking into the portion of the abdomen and the epigastric 10mm trocar port and 2 right lateral subcostal 5mm trocar ports were all placed under direct visualization. The gallbladder was held of the dome and elevated over the right half the liver towards the right shoulder. Blunt dissection with the Celeste jarquin was used to free the omentum from the infundibular gallbladder. A 2nd laparoscopic graspers used to hold the gallbladder at the infundibulum and then I proceeded to strip down the visceroperitoneum of the infundibular gallbladder until I identified the cystic duct. The cystic duct was then dissected out circumferentially. The cystic artery was identified was dissected out circumferentially as well. The posterior wall the gallbladder at the infundibulum was dissected free of the liver until the critical view was obtained. At this point I then placed 2 clips proximally cystic duct and 2 clips distally high on infundibular gallbladder. The cystic duct was then divided Endo Pastor. A similar fashion cystic artery clipped and divided as well. Gallbladder was resected off the liver utilizing electrocautery without spilling any bile or gallstones. Once the gallbladder was free from the liver is placed in Endo-Catch bag and brought out through the epigastric port site. The gallbladder and its contents were sent to pathology for examination. I then irrigated out the right upper quad the abdomen gallbladder fossa cope with sterile saline solution. Hemostasis was excellent. There was no evidence of bile leak. I then after the fluid from the right upper quadrant the abdomen from the pelvis. I then removed all the trocar ports under visualization all port sites appeared hemostatic. I then allowed the abdomen decompressed. The patient tolerated the procedure well no complications. All sponges, needles, and instrument counts were correct at the end procedure. EBL was _25_cc. The patient was awakened and taken to recovery in stable and satisfactory condition. Implants None Estimated
[2022-06-23] MEDS: fentaNYL CITRATE INJ (*CRX) 100 MCG/2 ML VIAL 25 MCG IV PUSH ×4 (17:40→17:46)
[2022-06-23] MEDS: HYDROcodone/acetaminophen (*CRX) 5-325 MG TABLET 1 TAB PO (20:08)
[2022-06-23] MEDS: MORPHINE SULFATE (*CRX) 4 MG/ML INJ IV PUSH (22:07)
[2022-06-24 03:19] VITALS: BP 108/65; PULSE 92; RESP 18; TEMP 36.6; O2SAT 100
[2022-06-24] MEDS: HYDROcodone/acetaminophen (*CRX) 5-325 MG TABLET 1 TAB PO ×2 (05:35→09:15)
[2022-06-24 06:01] LABS: Basophils Percent Auto 0.2 % (0.2-1.2); Eosinophils Percent Auto 0.1 % (0-4.4); Hematocrit 35.8 % (37.0-47.0); Hemoglobin 12.1 g/dL (12.0-15.0); Immature Granulocyte Absolute 0.08 K/mm3 (0.00-0.031); Immature Granulocyte Percent A 0.6 % (0-0.5); Lymphocytes Absolute Auto 1.39 K/mm3 (0.9-3.2); Lymphocytes Percent Auto 10.7 % (18.3-44.2); Mean Corpuscular HGB Conc 33.8 g/dl (32-36); Mean Corpuscular Hemoglobin 29.8 pg (26-34); Mean Corpuscular Volume 88.2 fl (80-100); Mean Platelet Volume 11.6 fl (7.4-10.4); Monocytes Absolute Auto 0.7 K/mm3 (0.1-0.6); Monocytes Percent Auto 5.5 % (2.6-8.5); Neutrophils Absolute Auto 10.8 K/mm3 (1.3-6.7); Neutrophils Percent Auto 82.9 % (45.5-73.1); Platelet Count Result 231 k/mm3 (150-375); Red Blood Count 4.06 M/mm3 (4.2-5.4); Red Cell Distribution Width 14.5 % (11.5-14.5); White Blood Count 13.1 K/mm3 (4.5-10.0)
[2022-06-24 07:49] LABS: Alanine Aminotransferase 114 U/L (6-35); Albumin Level 3.9 g/dL (3.5-5.1); Alkaline Phosphatase 89 U/L (38-126); Anion Gap 5 mmol/L (8-16); Aspartate Amino Transferase 65 U/L (14-36); Bilirubin,Total 0.8 mg/dL (0.2-1.3); Blood Urea Nitrogen 8 mg/dL (7-17); Calcium 8.6 mg/dL (8.4-10.2); Carbon Dioxide 28 mmol/L (22-30); Chloride 103 mmol/L (98-107); Estimated CRCL calculation 149 ml/min; Estimated Glomerular Filt Rate > 60; Glucose 103 mg/dL (65-110); Lipase 160 U/L (23-300); Sodium 136 mmol/L (137-145)
[2022-06-24 08:22] VITALS: BP 121/85; PULSE 87; RESP 16; TEMP 36.7; O2SAT 100
--- NOTE | 2022-06-24 09:08 | WPDPN ---
Progress Note: A&P Assessment and Plan (1) S/P laparoscopic cholecystectomy: Code(s): Z90.49 - Acquired absence of other specified parts of digestive tract Status: Acute Assessment and Plan: Patient seems to be doing very well postop day 1 after laparoscopic cholecystectomy. She is tolerating her diet and her pain is well controlled with oral pain medications. Abdominal exam is benign her his incisions are healing well. She may be discharged home today from a surgical perspective. She can follow up see me in the office in 2 weeks. Surgical postop activity orders are in the chart. Prescription for narcotic pain medicines have been sent to her pharmacy electronically. Subjective Date/time seen: 06/24/22 09:08 Interval history: Doing well this morning. She is tolerating a regular diet. Mild epigastric incisional pain treated with oral pain medications. Mild right shoulder pain from retained CO2. No nausea or vomiting. Afebrile. Exam Const: General: comfortable and no acute distress Resp: Effort & Inspection: normal respiratory effort Auscultation: clear to auscultation bilaterally Cardio: Rate: regular rate Rhythm: regular rhythm GI: Other: Abdomen soft and nondistended. Port site incisions healing well without redness or drainage. Expected mild tenderness around the port sites. Psych: Mental Status: mental status grossly normal Affect: normal affect Objective Data Vital Signs Vital Signs: Vital Signs - 24 hr 06/23/22 15:07 06/23/22 15:40 06/23/22 17:33 Temperature 36.8 C 37.3 C 36.4 C Pulse Rate 98 99 108 H Respiratory Rate 16 20 10 L Blood Pressure 119/80 126/77 117/58 L Pulse Oximetry 100 100 100 Oxygen Delivery Room Air Simple Face Mask Oxygen Flow Rate 10 06/23/22 17:45 06/23/22 18:00 06/23/22 18:06 Temperature Pulse Rate 92 100 99 Respiratory Rate 17 14 20 Blood Pressure 154/91 H 135/96 H 139/90 Pulse Oximetry 99 100 100 Oxygen Delivery Room Air Room Air Room Air Oxygen Flow Rate 06/23/22 18:20 06/23/22 18:35 06/23/22 18:55 Temperature 36.6 C 36.4 C 36.8 C Pulse Rate 92 90 96 Respiratory Rate 16 17 16 Blood Pressure 115/78 112/64 118/69 Pulse Oximetry 100 100 100 Oxygen Delivery Oxygen Flow Rate 06/23/22 20:28 06/23/22 20:00 06/24/22 03:19 Temperature 36.6 C 36.6 C Pulse Rate 90 92 Respiratory Rate 20 18 Blood Pressure 123/77 108/65 Pulse Oximetry 98 100 Oxygen Delivery Room Air Oxygen Flow Rate 06/24/22 08:22 Temperature 36.7 C Pulse Rate 87 Respiratory Rate 16 Blood Pressure 121/85 Pulse Oximetry 100 Oxygen Delivery Oxygen Flow Rate Intake/Output Intake/Output: Intake & Output 06/21/22 06/22/22 06/23/22 06/24/22 23:59 23:59 23:59 23:59 Intake Total 2250 2990 1390 Balance 2250 2990 1390 Meds/Results Medications: Active Medications Generic Name Dose Route Start Last Admin Trade Name Freq PRN Reason Stop Dose Admin Hydrocodone Bitart/Acetaminophen 1 tab 06/23/22 18:09 06/24/22 05:35 Hydrocodone/Acetaminophen (*Crx) 5-325 Mg Tablet PO 1 tab Q4H PRN Administration Pain Rated 4-6 Morphine Sulfate 4 mg 06/23/22 18:09 06/23/22 22:07 Morphine Sulfate (*Crx) 4 Mg/Ml Inj IV PUSH 4 mg Q4H PRN Administration Pain Rated 7-10 Ondansetron HCl 4 mg 06/23/22 18:09 Ondansetron Inj 4 Mg/2 Ml Vial IV PUSH Q4H PRN Nausea And Vomiting Pantoprazole Sodium 40 mg 06/24/22 09:00 Pantoprazole 40 Mg Tablet PO [facility] Radiology Results: ITS Impressions Abdomen/Pelvis CT 06/22/22 11:05 IMPRESSION: 1. Cholelithiasis along with possible mural calcification (porcelain gallbladder) at the fundus. No biliary ductal dilation or findings to suggest acute cholecystitis. Abdomen Ultrasound 06/22/22 12:04 IMPRESSION: 1. Mildly dilated common duct. 2. Cholelithiasis. No evidence of acute cholecystitis. MRCP 06/23/22 08:10 IMPRESSION:
[2022-06-24] MEDS: PANTOPRAZOLE 40 MG TABLET PO (09:11)
--- NOTE | 2022-06-24 11:00 | WPDGICN ---
Assessment and Plan Assessment and plan (1) Acute gallstone pancreatitis: Code(s): K85.10 - Biliary acute pancreatitis without necrosis or infection Status: Acute Assessment and Plan: she just had cholecystectomy and doing better wonder if she also passed stone, mrcp without bile [place] going home later today (2) Common bile duct dilation: Code(s): K83.8 - Other specified diseases of biliary tract Status: Acute Assessment and Plan: mrcp reviewed (3) Elevated liver enzymes: Code(s): R74.8 - Abnormal levels of other serum enzymes Status: Acute Assessment and Plan: from acute pancreatitis repeat lft as outpatient (4) Upper abdominal pain: Code(s): R10.10 - Upper abdominal pain, unspecified Status: Acute (5) Gallstones: Code(s): K80.20 - Calculus of gallbladder without cholecystitis without obstruction Status: Acute Assessment and Plan: s/p juan GI Consult Note Consult date/time: 06/24/22 11:00 Reason for consult: GS pancreatitis, elevated liver enzymes HPI: Glenny Sanders is a 21 year old female who came to the ER with 4 days of epigastric with radiation to mid back after eaten eggs, sausage, and donut that progressively got more severe. Also had generalized itching and urine was getting dark. No fever or chills. Also had mild nausea, but no vomiting.? ER, labs showed a lipase of 2,233, WBC 9,600, AST 47, ALT 146, and normal total bilirubin and alk phos.?Ultrasound with mild dilated bile duct then had MRCP that showed No choledocholithiasis, Cholelithiasis. No evidence of acute cholecystitis. She underwent cholecystectomy and feeling much better, going home later today. Review of Systems Review of Systems: All systems reviewed & are unremarkable except as noted in HPI and below Constitutional: Constitutional: Reports no additional constitutional complaints, Denies chills, Denies fatigue, Denies headache(s) and Denies weakness Eyes: Eyes: Reports no additional eye complaints ENT: Reports system reviewed and no additional complaints, except as documented, Denies dizziness and Denies headache(s) Cardiovascular: Cardiovascular: Reports no additional cardiovascular complaints, Denies chest pain and Denies leg edema Respiratory: Respiratory: Reports no additional respiratory complaints, Denies cough and Denies dyspnea Gastrointestinal: Gastrointestinal: Reports abdominal pain, Denies change in stool character, Denies constipation, Denies diarrhea, Reports nausea and Denies vomiting Genitourinary: Genitourinary: Reports no additional female genitourinary complaints Musculoskeletal: Musculoskeletal: Reports no additional musculoskeletal complaints and Denies joint swelling Integumentary/Breasts: Skin/Breast: Reports system reviewed and no additional complaints, except as docu and Denies jaundice Neurologic: Reports system reviewed and no additional complaints, except as documented, Denies headache(s), Denies focal weakness, Denies numbness and Denies tingling Psychiatric: Psychiatric: Denies behavioral changes [facility] Past Medical History Medical History (Updated 06/24/22 @ 15:32 by Panfiol Singletary MD) Elevated liver enzymes Patient denies significant medical history Upper abdominal pain Surgical History Surgical History (Updated 06/24/22 @ 09:07 by Mark Mcmahan MD) History of appendectomy Family History Family History Other Diabetes mellitus Grandparent Diabetes mellitus Grandparent Heart disease Social History Social History Social History: The patient continues to vape tobacco. 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 She is single and has no children. Code status full code Smoking status: Current every day smoker Alcohol intake: current Drinks per week: 1 G[place]
--- NOTE | 2022-06-24 11:04 | PM.DS ---
DS: Admitting Diagnosis Discharge Date 06/24/2022 Admitting Diagnosis Gallstone pancreatitis DS: Discharge Diagnosis Discharge Diagnosis (1) Acute gallstone pancreatitis: Code(s): K85.10 - Biliary acute pancreatitis without necrosis or infection Status: Acute Assessment and Plan: Patient presented with diffuse abdominal pain. CT of abdomen/pelvis on presentation showed cholelithiasis with possible mural calcification of the fundus with no biliary ductal dilatation to suggest acute cholecystitis. Pancreas was normal on imaging Lipase markedly elevated on presentation at 2200. MRCP completed which showed mildly dilated common duct with no evidence of choledocholithiasis. Suspect patient passed the stone. Seen in consultation by Gastroenterology and General surgery Underwent laparoscopic cholecystectomy on 06/23/2022 Patient tolerated the procedure well and was able to advance to low-fat diet following surgery Will follow-up with General surgery as an outpatient Supportive care provided (2) Gallstones: Code(s): K80.20 - Calculus of gallbladder without cholecystitis without obstruction Status: Acute Assessment and Plan: As above. Patient is s/p cholecystectomy (3) Abnormal urinalysis: Code(s): R82.90 - Unspecified abnormal findings in urine Status: Acute Assessment and Plan: UA slightly abnormal on presentation with trace leuk esterase and 6-10 WBC, however with many squamous cells. Patient asymptomatic aside from dark urine which could be explained by above issues. She was started on Rocephin on admission while awaiting urine culture results This was discontinued as patient was asymptomatic Final urine cultures negative (4) Elevated liver enzymes: Code(s): R74.8 - Abnormal levels of other serum enzymes Status: Acute Assessment and Plan: Very mild elevation Suspect secondary to gallstone pancreatitis Anticipate resolution following cholecystectomy Follow-up with General surgery DS: Summary Hospital Course Hospital Course: Date of admission: 06/22/2022 Date of discharge: 06/24/2022 Glenny Sanders is a 21-year-old female with no significant medical history who presented to the emergency department on 06/22/2022 with complaints of intermittent bilateral flank pain with associated pruritus. On presentation to the ED, her vital signs were stable, she was afebrile, CBC and BMP unremarkable, AST and ALT were elevated with normal total bilirubin, UA slightly abnormal however with many squamous cells, and lipase was 2200. She was admitted to the hospitalist service for further evaluation management was seen in consultation by General surgery. Please see above for further details. Patient underwent laparoscopic cholecystectomy on 06/23/2022 and tolerated the procedure well. Her pain has been well controlled. She will follow-up with General surgery as an outpatient. Patient felt comfortable with plans for discharge home and was discharged in hemodynamically stable condition on 06/24/2022. Time Spent with Patient Time attestation: Total time spent providing and/or coordinating discharge services: 45 minutes Time spent: Greater than 30 minutes Exam Narrative: General: well-nourished well-appearing 21-year-old female, sitting up in bed, comfortable, NARD Neuro: awake, alert and oriented x4, speech clear, no focal neuro deficits noted HEENMT: normocephalic, atraumatic, EOMI, sclerae anicteric, moist oral mucosa Respiratory: clear to auscultation bilaterally, nonlabored breathing Cardio: regular rate, regular rhythm with S1-S2 Abdomen: nondistended, normoactive bowel sounds, soft, nontender to palpation Extremities: no edema, erythema, or tenderness to palpation, DP pulses 2+ bilaterally Skin: no rashes or lesions, warm and dry Psych: appropriate mood and affect, judgment and insight intact DS: Data Data Completed and Pending P
--- NOTE | 2022-06-24 13:44 | WPDANESPN ---
Anes - Prog Note Post-Op Date/Time: 06/24/22 13:44 Cardiovascular status: normal Respiratory status: normal Airway patency: baseline Mental status: baseline Post-Op hydration status: normal Vital Signs: Last Vital Signs Temp 98.0 F 06/24/22 08:22 Pulse 87 06/24/22 08:22 Resp 16 06/24/22 08:22 BP 121/85 06/24/22 08:22 Pulse Ox 100 06/24/22 08:22 O2 Del Method Room Air 06/24/22 09:11 O2 Flow Rate 10 06/23/22 17:33 Pain Score (VAS): 0/10 I/O: Intake & Output 06/23/22 06/24/22 06/24/22 23:59 07:59 15:59 Intake Total 968 432 2256 Balance 693 158 8094 Laboratory Tests 06/24/22 05:22 06/24/22 05:21 06/23/22 06/24/22 06/24/22 12:48 05:21 05:22 WBC 13.1 H RBC 4.06 L Hgb 12.1 Hct 35.8 L MCV 88.2 D MCH 29.8 MCHC 33.8 RDW 14.5 Plt Count 231 MPV 11.6 H Immature Gran % (Auto) 0.6 H Neut % (Auto) 82.9 H Lymph % (Auto) 10.7 L [place] % (Auto) 5.5 Eos % (Auto) 0.1 Baso % (Auto) 0.2 Lymph # (Auto) 1.39 [place] # (Auto) 0.7 H Eos # (Auto) 0.0 Baso # (Auto) 0.0 Abs Immat Gran (auto) 0.08 H Absolute Neuts (auto) 10.8 H Absolute Nucleated RBC 0.0 Nucleated RBC % 0.0 Sodium 136 L Potassium 4.0 Chloride 103 Carbon Dioxide 28 Anion Gap 5 L BUN 8 Creatinine 0.60 L Estim Creat Clear Calc 149 Estimated GFR > 60 Glucose 103 Calcium 8.6 Total Bilirubin 0.8 AST 65 H ALT 114 H Alkaline Phosphatase 89 Total Protein 6.0 L Albumin 3.9 Lipase 160 Antibody Screen Negative Microbiology 06/22/22 09:39 Unspecified Urine Urine Culture - Final 06/22/22 16:34 Blood Blood Culture - Preliminary 06/22/22 16:34 Blood Blood Culture - Preliminary Post-procedural complaints: none Patient Feedback: Patient satisfied with anesthetic care.
== END 2022-06-24 12:30 | disposition home or self-care (01) ==
LOC: ANHED 12:41 → ANH2MED 13:41
PROVIDERS: Nurse Practitioner; Surgery; Admitting Provider Family Medicine; Emergency Provider Physician Assistant; Visit Provider Physician Assistant
PROC: 0FT44ZZ Resection of Gallbladder, Percutaneous Endoscopic Approach (ICD-10-PCS; CPT 47562; principal; 2022-06-23 16:30)
DX: K85.10 Biliary acute pancreatitis without necrosis or infection (principal); K80.10 Calculus of gallbladder with chronic cholecystitis without obstruction; R82.90 Unspecified abnormal findings in urine; N39.0 Urinary tract infection, site not specified; K83.8 Other specified diseases of biliary tract; R74.8 Abnormal levels of other serum enzymes; Z97.5 Presence of (intrauterine) contraceptive device; E66.9 Obesity, unspecified; Z68.37 Body mass index [BMI] 37.0-37.9, adult; F17.290 Nicotine dependence, other tobacco product, uncomplicated; F10.90 Alcohol use, unspecified, uncomplicated; F12.90 Cannabis use, unspecified, uncomplicated; Z79.1 Long term (current) use of non-steroidal anti-inflammatories (NSAID); Z79.899 Other long term (current) drug therapy
CPT/HCPCS: 47562; 36415; 74177; 74183; 76376; 76705; 80053; 81001; 81025; 83605; 83690; 83735; 84443; 85025; 86850; 86900; 86901; 87040; 87086; 87088; 88304; 96361; 96365; 96366; 96367; 96375; 96376; 99285; A9270; A9577; C1713; G0378; J0131; J0696; J1100; J1170; J1200; J1885; J2250; J2270; J2370; J2405; J2704; J2710; J3010; J7030; J7120; Q9967

== ENCOUNTER 2022-07-01 12:07 | Emergency (ER) | payer OTHER, SELFPAY ==
[2022-07-01 12:12] VITALS: BP 128/67; PULSE 87; RESP 20; TEMP 37.2; O2SAT 100
--- NOTE | 2022-07-01 13:32 | PCAUD ---
Pt left before seeing provider. Pt was able to get an appointment with her provider.
== END 2022-07-01 13:36 | disposition left against medical advice (07) ==
PROVIDERS: Emergency Provider Registered Nurse; PCP Family Medicine
DX: G89.18 Other acute postprocedural pain (principal)
CPT/HCPCS: 99199

== ENCOUNTER 2022-10-13 10:22 | Emergency (ER) | payer BC, SELFPAY ==
[2022-10-13 10:25] VITALS: BP 119/82; PULSE 94; RESP 17; TEMP 36.9; O2SAT 100
[2022-10-13 10:53] LABS: Appearance Urine Clear (Clear); Bacteria Urine Rare /hpf; Bilirubin Urine Negative (Negative); Blood Urine Negative (Negative); Color Urine Yellow (Yellow); Glucose Urine UA Negative (Negative); Ketones Urine Negative (Negative); Leukocyte Esterase Ur 2+ LEU/UL (Negative); Nitrate Urine Negative (Negative); Non Pathogenic Casts 0-2; Protein Urine Negative (Negative); RBC Urine 0-2 /hpf (0-2); Specific Grav Ur 1.016 (1.001-1.035); Squamous Epithelial Cell Urine None seen /hpf (Few); Urobilinogen Urine 0.2 mg/dL (<2.0); WBC Urine 51-100 /hpf; pH Urine 6.5 (5.0-9.0)
[2022-10-13 11:05] LABS: Add Urine Microscopic? YES
--- NOTE | 2022-10-13 12:30 | ED.GENADULT ---
HPI - General Adult General Chief complaint: Urogenital-Female Stated complaint: pelvic and back pain Time Seen by Provider: 10/13/22 10:27 History of Present Illness HPI narrative: 21-year-old female presented to the ED for evaluation of urinary pain. Pain has been ongoing for the past few days. Patient does have a history of urinary tract infections. Patient has had some nausea but states this is more of a chronic issue. Patient also has had dysuria and urinary urgency. Related Data Home Medications Medication Instructions Recorded Confirmed etonogestrel 68 mg subdermal 68 mg subdermal 03/01/19 implant (Nexplanon) Allergies Allergy/AdvReac Type Severity Reaction Status Date / Time No Known Allergies Allergy Verified 10/13/22 10:36 Review of Systems Review of Systems: All systems reviewed & are unremarkable except as noted in HPI and below PMFSH Past Medical History Medical History Elevated liver enzymes No acute medical problems Patient denies significant medical history Upper abdominal pain Surgical History Surgical History History of appendectomy History of laparoscopic cholecystectomy Family History Family History Other Diabetes mellitus Grandparent Diabetes mellitus Grandparent Heart disease Other No acute medical problems Social History Social History Social History: The patient continues to vape tobacco. 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 She is single and has no children. Code status full code Smoking status: Current every day smoker Tobacco type: e-cigarettes/vaping Alcohol intake: current Drinks per week: 1 Substance use: current Substance use type: marijuana Last use: 06/22/ Lack of Transportation: No Lack of Food: Never True Current Housing: I Have Housing Concerned About Future Housing: No Difficulty Paying Gas/Electric Bills: No Difficulty Paying for Meds: No Currently Unemployed: No Education: High School Diploma/GED Difficulty w/ Childcare or Family Care: No Spiritual care concerns: No Exam Narrative: APPEARANCE: Well appearing, no pain, no distress, well-nourished. HEAD: normocephalic, atraumatic. EYES: PERRLA/EOMI, conjunctivae clear. NOSE: Normal no drainage NECK: Supple. No adenopathy, no masses. RESPIRATORY: Airway patent, respirations nonlabored. Clear to auscultation bilaterally, no rales, rhonchi, wheezing. CARDIOVASCULAR: Regular rate and rhythm without murmurs rubs or gallops. ABDOMINAL: Soft, nontender, nondistended, normal bowel sounds MUSCULOSKELETAL: Moves all extremities. Strength/ROM intact, No edema, No calf tenderness. NEURO: Alert. Cranial nerves II through XII intact. SKIN: Warm, dry. Normal Color Course Course Emergency Course: 21-year-old female with urinary pain and bladder spasm. Bladder scan showed no retained urine. UA was concerning for infection. Urine culture was ordered and patient was started on p.o. Keflex and Pyridium. Patient was updated the results of the work-up and plan for close follow-up with her primary care physician. Patient was also educated on reasons to return to the emergency department. Vital Signs Vital signs: Vital Signs Temperature 98.5 F 10/13/22 10:25 Pulse Rate 94 10/13/22 10:25 Respiratory Rate 17 10/13/22 10:25 Blood Pressure 119/82 10/13/22 10:25 Pulse Oximetry 100 10/13/22 10:25 Temperature 98.5 F 10/13/22 10:25 Pulse Rate 94 10/13/22 10:25 Respiratory Rate 17 10/13/22 10:25 Blood Pressure 119/82 10/13/22 10:25 Pulse Oximetry 100 10/13/22 10:25 Medical Decision Making Differential Diagnosis Differential Diagnosis: UTI Vital Signs Vital Signs: Vital Si
[2022-10-13] MEDS: PHENAZOPYRIDINE HCL 100 MG TABLET 200 MG PO (12:36)
[2022-10-13] MEDS: CEPHALEXIN 500 MG CAPSULE PO (12:36)
== END 2022-10-13 12:47 | disposition home or self-care (01) ==
PROVIDERS: Emergency Provider Emergency Medicine
DX: R82.998 Other abnormal findings in urine (principal); Z90.49 Acquired absence of other specified parts of digestive tract; F17.290 Nicotine dependence, other tobacco product, uncomplicated
CPT/HCPCS: 81001; 81025; 87077; 87086; 87088; 99283; A9270

== ENCOUNTER 2022-12-18 14:46 | Emergency (ER) | payer BC, SELFPAY ==
[2022-12-18 15:32] VITALS: BP 135/92; PULSE 95; RESP 16; TEMP 37.6; O2SAT 99
--- NOTE | 2022-12-18 16:28 | ED.WOUNDLAC ---
HPI - Wound/Laceration General Chief Complaint: Wound/Laceration Stated Complaint: Left Hand Dog Bite Time Seen by Provider: 12/18/22 16:20 Source: patient and RN notes reviewed Mode of arrival: ambulatory Limitations: no limitations History of Present Illness HPI narrative: Patient presents today complaining of a dog bite to her left 3rd finger. She was introducing her dog to her mother's dog at home today when they got in a fight. She is up-to-date on her tetanus vaccine. The dogs are up-to-date on their vaccines. Related Data Allergies Allergy/AdvReac Type Severity Reaction Status Date / Time No Known Allergies Allergy Verified 12/18/22 16:00 Review of Systems Review of Systems: CONSTITUTIONAL: Denies body aches, fever, chills, or sweats. EYES: Denies visual changes, redness, or discharge. ENT: Denies rhinorrhea, congestion, sore throat, or otalgia. CARDIOVASCULAR: Denies chest pain, palpitations, or edema. RESPIRATORY: Denies cough or dyspnea. GASTROINTESTINAL: Denies abdominal pain, nausea, vomiting, or diarrhea. GENITOURINARY: Denies dysuria or hematuria. SKIN: + dog bite MUSCULOSKELETAL: Denies back pain, joint pain, or myalgia. NEUROLOGIC: Denies headache, numbness, tingling, or weakness. PSYCH: Denies depression or anxiety. [facility] Past Medical History Medical History Elevated liver enzymes No acute medical problems Patient denies significant medical history Upper abdominal pain Surgical History Surgical History History of appendectomy History of laparoscopic cholecystectomy Family History Family History Other Diabetes mellitus Grandparent Diabetes mellitus Grandparent Heart disease Other No acute medical problems Social History Social History Social History: The patient continues to vape tobacco. She works is a [employer] at [employer]. She is single and has no children. Code status full code Smoking status: Current every day smoker Tobacco type: e-cigarettes/vaping Alcohol intake: current Drinks per week: 1 Substance use: current Substance use type: marijuana Last use: 06/22/ Lack of Transportation: No Lack of Food: Never True Current Housing: I Have Housing Concerned About Future Housing: No Difficulty Paying Gas/Electric Bills: No Difficulty Paying for Meds: No Currently Unemployed: No Education: High School Diploma/GED Difficulty w/ Childcare or Family Care: No Spiritual care concerns: No Comments At time of signature, I have reviewed and agree with nursing past medical, surgical, social and family history unless otherwise noted. Please see nursing chart for further information. There is no relevant family history pertinent to the presenting complaint Exam Narrative: GENERAL: Well-appearing, well-nourished, and in no acute distress. HEAD: Normocephalic, atraumatic. EYES: EOMI. No redness or drainage. Conjunctivae normal. ENT: Mucous membranes pink and moist. NECK: Normal AROM. CHEST: No respiratory distress. EXTREMITIES: Left 3rd finger: 2 cm full-thickness flap laceration to the pad of the finger. Distal sensation intact. Capillary refill normal. Acrylic nail is cracked. No bleeding from the finger nail bed. Full range of motion of the finger. SKIN: Warm, dry, no rash. Capillary refill normal. Normal skin turgor. NEURO: No focal deficits. Alert and oriented x3. Gait steady. PSYCH: Normal affect. No signs of depression or anxiety. Course Course Level of Care: Express Care Visit Vital Signs Vital signs: Vital Signs Temperature 99.7 F H 12/18/22 15:32 Pulse Rate 95 12/18/22 15:32 Respiratory Rate 16 12/18/22 15:32 Blood Pressure 135/92 H 12/18/22
--- NOTE | 2022-12-18 16:34 | PC.NURSE ---
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
== END 2022-12-18 17:22 | disposition home or self-care (01) ==
PROVIDERS: Emergency Provider Nurse Practitioner
DX: S61.259A Open bite of unspecified finger without damage to nail, initial encounter (principal); W54.0XXA Bitten by dog, initial encounter
CPT/HCPCS: 12001; 99213; G0463

== ENCOUNTER 2023-07-06 14:30 | Emergency (ER) | payer BC, SELFPAY ==
--- NOTE | 2023-07-06 14:37 | ED.GENADULT ---
HPI - General Adult General Chief complaint: Nausea/Vomiting/Diarrhea Stated complaint: vomiting,shooting pain in back,dizzy Time Seen by Provider: 07/06/23 14:43 Source: patient, RN notes reviewed and old records reviewed Mode of arrival: ambulatory Limitations: no limitations History of Present Illness HPI narrative: 22-year-old female presents to the [facility] with complaints of nausea vomiting since 3:00 a.m.. Patient also reports low back pain, generalized intermittent abdominal cramping. No treatment prior to arrival. Last time she vomited was at noon today. Has had urinary frequency but no burning. Onset (ago): hour(s) Treatments prior to arrival: none Related Data Allergies Allergy/AdvReac Type Severity Reaction Status Date / Time No Known Allergies Allergy Verified 12/18/22 16:00 Review of Systems Review of Systems: All systems reviewed & are unremarkable except as noted in HPI and below Constitutional: Constitutional: Reports no additional constitutional complaints Eyes: Eyes: Reports no additional eye complaints ENT: Reports system reviewed and no additional complaints, except as documented Cardiovascular: Cardiovascular: Reports no additional cardiovascular complaints, Denies chest pain and Denies dyspnea Respiratory: Respiratory: Reports no additional respiratory complaints, Denies chest congestion, Denies cough and Denies dyspnea Gastrointestinal: Gastrointestinal: Reports as per HPI, Reports abdominal pain (Intermittent sharp stabbing, suprapubic), Reports nausea and Reports vomiting Musculoskeletal: Musculoskeletal: Reports as per HPI and Reports back pain (Lower lumbar, intermittent) Integumentary/Breasts: Skin/Breast: Reports system reviewed and no additional complaints, except as docu Neurologic: Reports system reviewed and no additional complaints, except as documented Psychiatric: Psychiatric: Reports no additional psychiatric complaints Allergic/Immunologic: Allergic/Immunologic: Reports no additional allergic/immunologic complaints [facility] Past Medical History Medical History Elevated liver enzymes No acute medical problems Patient denies significant medical history Upper abdominal pain Surgical History Surgical History History of appendectomy History of laparoscopic cholecystectomy Family History Family History Other Diabetes mellitus Grandparent Diabetes mellitus Grandparent Heart disease Other No acute medical problems Social History Social History Social History: The patient continues to vape tobacco. 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 She is single and has no children. Code status full code Smoking status: Current every day smoker Tobacco type: e-cigarettes/vaping Alcohol intake: current Drinks per week: 1 Substance use: current Substance use type: marijuana Last use: 06/22/ Lack of Transportation: No Lack of Food: Never True Current Housing: I Have Housing Concerned About Future Housing: No Difficulty Paying Gas/Electric Bills: No Difficulty Paying for Meds: No Currently Unemployed: No Education: High School Diploma/GED Difficulty w/ Childcare or Family Care: No Spiritual care concerns: No Comments At the time of my signature, I reviewed and agree with the nursing past medical, surgical, social, and family history. There is no relevant family history pertinent to the patient complaint. Exam Const: General: cooperative, healthy appearing, comfortable, no acute distress, well developed, alert and well nourished Nutritional Appearance: well nourished and obese Orientation/consciousness: patient oriented x3 Limitations: no limitations HENMT: Head: normal to inspection Ears: hearing grossl
[2023-07-06 14:44] VITALS: BP 127/65; PULSE 118; RESP 20; TEMP 37; O2SAT 100
== END 2023-07-06 15:28 | disposition home or self-care (01) ==
PROVIDERS: Emergency Provider Nurse Practitioner
DX: K52.9 Noninfective gastroenteritis and colitis, unspecified (principal); N30.01 Acute cystitis with hematuria; Z20.822 Contact with and (suspected) exposure to COVID-19; F17.290 Nicotine dependence, other tobacco product, uncomplicated; F12.90 Cannabis use, unspecified, uncomplicated
CPT/HCPCS: 81003; 81025; 87086; 87088; 87426; 87804; 99213; G0463

== ENCOUNTER 2023-10-31 03:36 | Emergency (ER) | payer BC, SELFPAY ==
[2023-10-31 03:43] VITALS: BP 121/82; PULSE 84; RESP 18; TEMP 36.7; O2SAT 100
--- NOTE | 2023-10-31 04:01 | ED.GENADULT ---
HPI - General Adult General Chief complaint: Ear Stated complaint: left ear Time Seen by Provider: 10/31/23 03:51 History of Present Illness HPI narrative: This is a 22-year-old female presenting with left ear pain. Patient has pain radiating from her ear down her neck. It hurts when he pull on her earlobe. Patient swims in [place] every 2 weeks. She has had otitis externa before. Related Data Allergies Allergy/AdvReac Type Severity Reaction Status Date / Time No Known Allergies Allergy Verified 10/31/23 03:38 ON LICENSE OF [facility] Past Medical History Medical History Elevated liver enzymes No acute medical problems Patient denies significant medical history Upper abdominal pain Surgical History Surgical History History of appendectomy History of laparoscopic cholecystectomy Family History Family History Other Diabetes mellitus Grandparent Diabetes mellitus Grandparent Heart disease Other No acute medical problems Social History Social History Social History: The patient continues to vape tobacco. She works is a [employer] at [employer]. She is single and has no children. Code status full code Smoking status: Current every day smoker Tobacco type: e-cigarettes/vaping Alcohol intake: current Drinks per week: 1 Substance use: current Substance use type: marijuana Last use: 06/22/ Lack of Transportation: No Lack of Food: Never True Current Housing: I Have Housing Concerned About Future Housing: No Difficulty Paying Gas/Electric Bills: No Difficulty Paying for Meds: No Currently Unemployed: No Education: High School Diploma/GED Difficulty w/ Childcare or Family Care: No Spiritual care concerns: No Exam Narrative: APPEARANCE: No apparent distress. Head: atraumatic. Left ear exam shows pain with traction on the tragus, inflammatory inflammation of the external ear canal. Normal TM. Right ear is normal EYES: EOMI, NOSE: Atraumatic NECK: Trachea midline RESPIRATORY: No increased rate of breathing CARDIOVASCULAR: RRR, ABDOMINAL: Non-distended MUSCULOSKELETAl: No obvious deformities NEURO: Alert. Moving 4/4 extremities SKIN:: Warm, dry. Normal color PSYCHIATRIC: Normal affect Course Vital Signs Vital signs: Vital Signs Temperature 98.1 F 10/31/23 03:43 Pulse Rate 84 10/31/23 03:43 Respiratory Rate 18 10/31/23 03:43 Blood Pressure 121/82 10/31/23 03:43 Pulse Oximetry 100 10/31/23 03:43 Temperature 98.1 F 10/31/23 03:43 Pulse Rate 84 10/31/23 03:43 Respiratory Rate 18 10/31/23 03:43 Blood Pressure 121/82 10/31/23 03:43 Pulse Oximetry 100 10/31/23 03:43 Medical Decision Making MDM Narrative Medical decision making narrative: -Course: 22-year-old presenting with ear pain. Patient has otitis externa. Given pain medication and discharged on Ciprodex ear drops. -DDX includes but is not limited to: Otitis media, otitis externa -Interventions: Mullins, Motrin -Shared decision making / Disposition: Discharge -RX Ciprodex, Motrin, Tylenol Vital Signs Vital Signs: Vital Signs Temperature 98.1 F 10/31/23 03:43 Pulse Rate 84 10/31/23 03:43 Respiratory Rate 18 10/31/23 03:43 Blood Pressure 121/82 10/31/23 03:43 Pulse Oximetry 100 10/31/23 03:43 Temperature 98.1 F 10/31/23 03:43 Pulse Rate 84 10/31/23 03:43 Respiratory Rate 18 10/31/23 03:43 Blood Pressure 121/82 10/31/23 03:43 Pulse Oximetry 100 10/31/23 03:43 Discharge Plan Discharge Clinical Impression: Otitis externa Patient Disposition: Home, Self-Care Condition: Stable Instructions: Antibiotic Form, Swimmer's Ear (ED) Prescriptions: New ibuprofen 800 mg tablet 800 mg PO
[2023-10-31] MEDS: HYDROcodone/acetaminophen (*CRX) 5-325 MG TABLET 1 TAB PO (04:10)
[2023-10-31] MEDS: IBUPROFEN 400 MG TABLET 800 MG PO (04:10)
== END 2023-10-31 04:16 | disposition home or self-care (01) ==
LOC: ANHED 04:07
PROVIDERS: Emergency Provider Emergency Medicine
DX: H60.92 Unspecified otitis externa, left ear (principal); F17.210 Nicotine dependence, cigarettes, uncomplicated
CPT/HCPCS: 99283; A9270

== ENCOUNTER 2024-06-24 13:57 | Emergency (ER) | payer BC, SELFPAY ==
--- NOTE | ~2024-06-24 | XR_ITS ---
XR foot RT min 3V Ordering provider: Melissa Robison APRN History: . fell down stairs, rt 4th toe pain and swelling . Comparison: None. FINDINGS: BONES: No acute fracture or dislocation. JOINT SPACES: Normal. No tarsal coalition. SOFT TISSUES: Normal. IMPRESSION: No acute osseous abnormality of the right foot. Reviewed, dictated and finalized at location A.
--- NOTE | 2024-06-24 14:02 | ED_ITS ---
HPI - Extremity Injury (Lower) General Chief Complaint: Extremity Injury, Lower Stated Complaint: right toe injury Time Seen by Provider: 06/24/24 13:59 Source: patient Mode of arrival: ambulatory Limitations: no limitations History of Present Illness HPI Narrative: Patient is a 23-year-old female who presents right 4th toe pain since last night. Patient states she had a misstep last night and was very crooked. Patient states may have popped back into place. Still painful with walking. Related Data Allergies Allergy/AdvReac Type Severity Reaction Status Date / Time No Known Allergies Allergy Verified 10/31/23 03:38 Review of Systems Review of Systems: All systems reviewed & are unremarkable except as noted in HPI and below Constitutional: Constitutional: Denies body ache(s), Denies chills, Denies fatigue, Denies fever(s), Denies headache(s), Denies malaise and Denies weakness Eyes: Eyes: Denies blurry vision, Denies irritation and Denies loss of vision ENT: Denies otalgia, Denies headache(s), Denies nasal discharge, Denies sinus pain and Denies sore throat Cardiovascular: Cardiovascular: Denies chest pain, Denies irregular heart rhythm and Denies dyspnea Respiratory: Respiratory: Denies dyspnea Gastrointestinal: Gastrointestinal: Denies abdominal pain, Denies melena, Denies hematochezia, Denies diarrhea, Denies nausea and Denies vomiting Musculoskeletal: Musculoskeletal: Denies back pain, Denies myalgias and Reports arthralgias Integumentary/Breasts: Skin/Breast: Denies pruritus and Denies rash Neurologic: Denies headache(s), Denies loss of vision and Denies weakness Psychiatric: Psychiatric: Reports no additional psychiatric complaints Endocrine: Endocrine: Denies fatigue PMFSH Past Medical History Medical History No acute medical problems Upper abdominal pain Elevated liver enzymes Patient denies significant medical history Surgical History Surgical History History of laparoscopic cholecystectomy History of appendectomy Family History Family History Other Diabetes mellitus Grandparent Diabetes mellitus Grandparent Heart disease Other No acute medical problems Social History Social History Social History: The patient continues to vape tobacco. 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 She is single and has no children. Code status full code Smoking status: Current every day smoker Tobacco type: e-cigarettes/vaping Alcohol intake: current Drinks per week: 1 Substance use: current Substance use type: marijuana Last use: 06/22/ Lack of Transportation: No Lack of Food: Never True Current Housing: I Have Housing Concerned About Future Housing: No Difficulty Paying Gas/Electric Bills: No Difficulty Paying for Meds: No Currently Unemployed: No Education: High School Diploma/GED Difficulty w/ Childcare or Family Care: No Spiritual care concerns: No Comments At time of signature, agree with nursing past medical, surgical, social and family history. There is no relevant family history pertinent to the presenting complaint. Exam Const: General: cooperative, healthy appearing, comfortable, no acute distress and well nourished Nutritional Appearance: well nourished Orientation/consciousness: patient oriented x3 Limitations: no limitations HENMT: Head: normal to inspection, normocephalic and atraumatic Ears: hearing grossly normal bilaterally and external ears normal Face/Nose/Sinus: Normal external nose present, normal facial exam and face symmetric Face and sinus: normal facial exam and face symmetric Mouth: Yes lip normal Eyes: General: appearance normal, both eyes and all related structures Alignment and Position: alignment normal and position normal Periorbital: periorbital findings normal Eyelids: eyelids normal Pupils: Equal, round and reactive pupils present EOM: EOMs intact bilaterally Neck: Neck: normal visual inspection, full ROM and supple Chest: Chest palpation & inspection: normal inspection of the chest Resp: Effort & Inspection: normal respiratory effort and able to speak in complete sentences Auscultation: clear to auscultation bilaterally Cardio: Rate: regular rate Rhythm: regular rhythm Heart sounds: S1 normal heart sound present and S2 normal heart sound present GI: Inspection: normal to inspection Skin: General skin exam: normal color and no rashes or lesions noted Neuro: General: patient oriented x3 and moves all extremities Cranial nerves: Yes Equal, round and reactive pupils present Speech: normal speech Gait exam (Neuro): Normal gait present Extrem: General: normal to inspection, full ROM and no edema Right lower extremity: ankle Details: normal to inspection and normal ROM; no tenderness, no swelling and achilles tendon exam normal and foot Details: normal capillary refill, tenderness Location: of another digit Location: the 4th digit and along the entire digit, abnormal ROM of toe Details: pain with active ROM Location: of the 4th digit, no edema, ecchymosis 4th toe Details: single and vascular exam Details: dorsalis pedis pulse present and normal capillary refill; no unusual warmth Psych: Appearance: grossly normal and well kempt Mental Status: mental status grossly normal Speech and movement: Normal speech and movement present Affect: normal affect Attitude: cooperative Thought process: Normal thought process present Course Course Emergency Course: Patient is aware of diagnosis, understands and agrees to treatment plan. Anticipatory guidance given. Patient agrees to follow-up as directed and is aware of reasons to seek care at the emergency department. Portions of this record may have been created with voice recognition software Level of Care: Express Care Visit Vital Signs Vital signs: Reviewed MDM - Extremity Injury (Lower) MDM Narrative Medical decision making narrative: Pt well hydrated appearing, in no respiratory distress, hemodynamically stable. Recommend supportive care. The patient is stable at time of discharge the clinical impression was discussed and the patient was given the opportunity to ask questions, which were addressed as completely as possible given the information available at present. Anticipatory guidance and return to care precautions were discussed and the importance of primary care follow-up was stressed and encouraged. The patient voiced understanding of the plan, indications to return, and the need for follow-up. Exam findings show no acute concerns or changes Patient is appropriate for outpatient treatment and follow-up. Differential Diagnosis Differential diagnosis: Likely fracture of toe and other (Dislocation of toe, contusion, foot fracture, foot sprain) Medical Records Attestation: I reviewed the patient's medical records. Imaging Data Radiologist's impression: XR foot RT min 3V Ordering provider: Melissa Robison APRN History: . fell down stairs, rt 4th toe pain and swelling . Comparison: None. FINDINGS: BONES: No acute fracture or dislocation. JOINT SPACES: Normal. No tarsal coalition. SOFT TISSUES: Normal. IMPRESSION: No acute osseous abnormality of the right foot. Discharge Plan Discharge Clinical Impression: Sprain of toe, fourth, right Qualifiers: Encounter type: initial encounter Qualified Code(s): S93.504A - Unspecified sprain of right lesser toe(s), initial encounter Patient Disposition: Home, Self-Care Condition: Stable Instructions: Foot Contusion (ED) Additional Instructions: Xray showed no fracture. Minimize activities that aggravate the condition The RICE protocol. Follow the RICE protocol as soon as possible after your injury: Rest your foot by not walking on it. Ice should be immediately applied to keep the swelling down. It can be used for 20 to 30 minutes, three or four times daily. Do not apply ice directly to your skin. Compression dressings, bandages or cesar-wraps will immobilize and support your injured foot. Elevate your foot above the level of your heart as often as possible during the first 48 hours. Medication: For pain, you may take: Tylenol 650-1000mg by mouth every 4-6 hours. Do not exceed 4000mg in 24 hours. Advil (Ibuprofen) 600 mg by mouth every 6 hours. Do not exceed 2400mg in 24 hours. 8 AM: Tylenol 11 AM: Ibuprofen 2 PM: Tylenol 5 PM: Ibuprofen 8 PM: Tylenol 11 PM: Ibuprofen 2 AM: Tylenol 5 AM: Ibuprofen Please schedule a follow-up visit with your personal physician for further kellie luation and treatment within 1week OR If your symptoms persist, change or worsen significantly before you can contact your personal physician then please, without delay, go to the emergency department for further evaluation. Your blood pressure was elevated above 120/80 today at Urgent Care. This puts you above the threshold for follow up visit with a primary care provider. High blood pressure does not usually cause any symptoms, however it may lead to kidney failure, stroke, heart disease just to name a few if untreated . Many people are anxious when seeing a provider or nurse. As a result, you are not diagnosed with hypertension at this time unless your blood pressure is persistently high at two office visits at least one week apart. Some things that can help lower blood pressure are lifestyle modifications, such as light exercise, decreased salt in diet, and weight loss. It is important to follow up with a PCP about this within 1 week. Patient Language: Irish Prescriptions: No Action ibuprofen 800 mg tablet 800 mg PO TID PRN (Reason: pain) 7 Days Qty: 21 0RF acetaminophen 500 mg tablet 1,000 mg PO TID PRN (Reason: emy) 7 Days Qty: 42 0RF Follow-up/Referrals: Fab Aquino MD [Physician] - 3 Days Stand Alone Forms: Work/School Release IP Time of Disposition: 14:47
[2024-06-24 14:07] VITALS: BP 133/96; PULSE 101; RESP 16; TEMP 37.1; O2SAT 100
== END 2024-06-24 15:07 | disposition home or self-care (01) ==
PROVIDERS: Emergency Provider Nurse Practitioner Family
DX: S93.504A Unspecified sprain of right lesser toe(s), initial encounter (principal); X58.XXXA Exposure to other specified factors, initial encounter; F17.290 Nicotine dependence, other tobacco product, uncomplicated
CPT/HCPCS: 73630; 99213; G0463